=== PATIENT | male | born 1960 | race Caucasian/White ===

== ENCOUNTER 2020-05-06 04:32 | Emergency (ER) | payer OTHER, SELFPAY ==
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
[2020-05-06 04:40] VITALS: BP 124/75; PULSE 75; RESP 18; TEMP 37.1; O2SAT 96
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
== END 2020-05-06 04:50 | disposition home or self-care (01) ==
LOC: ED 04:53
PROVIDERS: Emergency Provider Emergency Medicine
DX: Z02.89 Encounter for other administrative examinations (principal)
CPT/HCPCS: 36415; 99283